=== PATIENT | female | born 1960 | race Caucasian/White ===

== ENCOUNTER 2023-11-16 16:37 | Emergency (ER) | payer OTHER, SELFPAY ==
[2023-11-16 17:02] VITALS: BP 137/75; PULSE 67; RESP 16; TEMP 36.2; O2SAT 95
--- NOTE | 2023-11-16 19:25 | PC.NURSE ---
Assumed care of pt from [facility] Damon at this time. Pt resting comfortably in bed at this time w call light within reach.
[2023-11-16 20:03] VITALS: BP 114/75; PULSE 64; RESP 14; O2SAT 97
[2023-11-16] MEDS: ceFAZolin SODIUM 1 GM VIAL IV PUSH (20:03)
--- NOTE | 2023-11-16 20:05 | ED.GENADULT ---
HPI - General Adult General Chief complaint: Skin/Abscess/Foreign Body Stated complaint: something going with my left leg Time Seen by Provider: 11/16/23 19:22 History of Present Illness HPI narrative: 63-year-old female presenting with redness left leg. Symptoms started 4-5 days ago. She has mild erythema and pain over the left anterior gonzalez/ no systemic signs of illness such as fever chills nausea vomiting diarrhea. She has concerns either cellulitis or DVT. No risk factors for DVT. Related Data Allergies Allergy/AdvReac Type Severity Reaction Status Date / Time lisinopril Allergy Cough Verified 11/16/23 18:59 Sulfa (Sulfonamide Allergy Other Verified 11/16/23 18:59 Antibiotics) [facility] Past Medical History Medical History Emphysema/COPD Hypertension Hypothyroidism Surgical History Surgical History No pertinent past surgical history Social History Social History Smoking status: Current every day smoker Tobacco type: cigarettes Substance use: never Lack of Transportation: No Education: High School Diploma/GED Difficulty w/ Childcare or Family Care: No Living arrangements: with family Occupation/Education: unemployed Gender identity (if verbalized by the patient): Female Exam Narrative: APPEARANCE: No apparent distress. Head: atraumatic. EYES: EOMI, NOSE: Atraumatic NECK: Trachea midline RESPIRATORY: No increased rate of breathing CARDIOVASCULAR: RRR, ABDOMINAL: Non-distended MUSCULOSKELETAl: No obvious deformities NEURO: Alert. Moving 4/4 extremities SKIN:: mild erythema and warmth over the left anterior gonzalez. No areas of fluctuance. Not circumferential. No significant pitting edema. PSYCHIATRIC: Normal affect Point of care 3 point compression left leg showed no evidence of DVT. Course Vital Signs Vital signs: Vital Signs Temperature 97.2 F L 11/16/23 17:02 Pulse Rate 67 11/16/23 17:02 Respiratory Rate 16 11/16/23 17:02 Blood Pressure 137/75 11/16/23 17:02 Pulse Oximetry 95 11/16/23 17:02 Temperature 97.2 F L 11/16/23 17:02 Pulse Rate 64 11/16/23 20:03 Respiratory Rate 14 11/16/23 20:03 Blood Pressure 114/75 11/16/23 20:03 Pulse Oximetry 97 11/16/23 20:03 Medical Decision Making MDM Narrative Medical decision making narrative: -Course: 63-year-old female presenting with warmth pain over left anterior gonzalez. Point of care DVT ultrasound showed no evidence of DVT and she has no risk factors. Most consistent with cellulitis, no identifiable abscess at this time She will be given IV Ancef here in the ED and discharged on Keflex. She is instructed follow-up with her primary care physician in the next 2-3 days to ensure that this is improving. Patient has stable vital signs and is well appearing is very comfortable going home. Given return precautions for systemic illness worsening cellulitis. -DDX includes but is not limited to: Cellulitis, DVT -Interventions: 1 g Ancef -Shared decision making / Disposition: discharged -RX Keflex 500 mg b.i.d. x7 days Vital Signs Vital Signs: Vital Signs Temperature 97.2 F L 11/16/23 17:02 Pulse Rate 67 11/16/23 17:02 Respiratory Rate 16 11/16/23 17:02 Blood Pressure 137/75 11/16/23 17:02 Pulse Oximetry 95 11/16/23 17:02 Temperature 97.2 F L 11/16/23 17:02 Pulse Rate 64 11/16/23 20:03 Respiratory Rate 14 11/16/23 20:03 Blood Pressure 114/75 11/16/23 20:03 Pulse Oximetry 97 11/16/23 20:03 Discharge Plan Discharge Clinical Impression: Cellulitis Patient Disposition: Home, Self-Care Condition: Stable Instructions: Antibiotic Form, Cellulitis (ED) Additional Instructions: You were seen in emergency department for cellulitis. Please take antibiotics as instruct
== END 2023-11-16 20:26 | disposition home or self-care (01) ==
PROVIDERS: Emergency Provider Emergency Medicine; PCP Internal Medicine
DX: L03.116 Cellulitis of left lower limb (principal); J44.9 Chronic obstructive pulmonary disease, unspecified; J43.9 Emphysema, unspecified; E03.9 Hypothyroidism, unspecified; F17.210 Nicotine dependence, cigarettes, uncomplicated
CPT/HCPCS: 96374; 99284; J0690

== ENCOUNTER 2024-01-19 18:33 | Emergency (ER) | payer OTHER, SELFPAY ==
--- NOTE | 2024-01-19 18:46 | PC.NURSE ---
PT HAS NOW DECIDED TO LEAVE DUE TO THE EXTENDED WAIT TIMES. SHE AMBULATED FROM THE ED WITH A STEADY GAIT. AWARE TO RETURN IF NEEDED.
== END 2024-01-19 18:46 | disposition left against medical advice (07) ==
LOC: ANHED 23:42
PROVIDERS: PCP Internal Medicine
DX: M25.551 Pain in right hip (principal)
CPT/HCPCS: 99199

== ENCOUNTER 2024-02-26 07:51 | Outpatient (CLI) | payer OTHER, SELFPAY | END 2024-02-26 07:52 | disposition home or self-care (01) | LOC: ANHAUDIO 07:54 | PROVIDERS: PCP Internal Medicine; Visit Provider Otolaryngology | DX: H90.3 Sensorineural hearing loss, bilateral (principal) | CPT/HCPCS: 92557; 92567 ==